=== PATIENT | male | born 1985 | race Caucasian/White ===

== ENCOUNTER 2023-10-01 22:15 | Emergency (ER) | payer OTHER, SELFPAY ==
--- NOTE | 2023-10-01 22:54 | ED.GENMED ---
History of Present Illness
General
Chief Complaint: Crisis Evaluation
Source: patient and police
Time Seen by Provider: 10/01/23 22:37
Nursing documentation reviewed up to this point in time: agreed with
History of Present Illness
History of Present Illness:
38-year-old male brought in by [facility] [employer]. Patient was in custody during an arrest for driving under the influence. While he was in Officer Samir custody, patient stated that 'wanted to kill himself '. He stated that 'he
had nothing left to live for and had nowhere to go'. He told the officer that 'he would go to a local campground to kill himself if he was released. He further stated that he would kill himself with one of the knives he had in his truck '.
Patient then proceeded to threaten the officer stating that he was 'going to find us and kill us to soon as he was released '. He told Officer Leonidas that 'he lives in the area and knows the area well and that will make it easy for him to come kill
me the next time I work'.
History is limited because patient is severely agitated. He appears intoxicated. Patient was handcuffed. He was verbally threatening staff stating that he was 'going to kill us '. We did sedate him with Haldol and Ativan to protect him from
himself. Patient being monitored on one-to-one.
Past History
Past History
ED Past Medical History: None
ED Past Surgical History: Orthopedic
Patient has exhibited threatening behavior?: Yes
Date of threatening behavior? (updated with each occurrence): 10/01/23
Social History
Tobacco: Smoker
Alcohol: Occasional
Drug: Marijuana
Personal: Single
Living: with family
Employment: Employed
Review of Systems
Review of Systems
Allergies reviewed?: Yes
All Other Systems: ROS reviewed and negative except as documented in HPI and ROS
Psychiatric: Reports anxiety and suicidal
Phy Exam
General Physical Exam
General Presentation: severe distress
General age: appears older than age
General Skin: warm, dry and flushed
General Habitus: normal
General Mental: angry, anxious, appears intoxicated and verbally abusive
General Hydration: appears well hydrated
Musculoskeletal Exam
Musculoskeletal Exam: full ROM
Skin Exam
Skin Exam: normal color and warm/dry
Psychiatric Exam
Psychiatric Exam: agitated, anxious and suicidal
Course
Orders/Labs/Results
Orders:
Orders
10/01/23 22:20
Crisis Consult Urgent
Reason for Consult: SI
1:1 Observation - Suicide/ Violent Behavior As Directed
10/01/23 22:24
Urine Drug Abuse Screen Urgent
Date Specimen was Collected: 10/01/23
Time Specimen was Collected: 22:24
10/01/23 22:41
Haloperidol Lactate [Haldol] 10 mg .ROUTE .STK-MED ONE
Lorazepam [Ativan] 2 mg .ROUTE .STK-MED ONE
10/01/23 22:53
Haloperidol Lactate [Haldol] 10 mg IM NOW STA
Lorazepam [Ativan] 2 mg IM NOW STA
10/01/23 22:59
Alcohol Urgent
Basic Metabolic Panel Urgent
Complete Blood Count/With Diff Urgent
10/01/23 23:11
PSYCHIATRY CONSULT Urgent
Consulting Provider: Ranulfo Art
Was physician already notified: No
Reason for consult: Suicidal and homicidal ideation, alcohol intoxication
10/01/23 23:12
Consult Notification Routine
Specialty to Notify: Psychiatry
Date consulting provider notified: 10/01/23
Time consulting provider notified: 23:43
Notified:: Service
Abnormal Lab Results
10/01/23
22:59
MCHC 37.5 H g/dL
(33.0-37.0)
Chloride 110 H mmol/L
(98-107)
BUN 7 L mg/dl
(9-20)
Calcium 8.3 L mg/dl
(8.4-10.2)
10/01/23 22:59
10/01/23 22:59
Vital Signs
Initial and Last Documented VS:
Initial Vital Signs
Temp Pulse Resp BP Pulse Ox
98.0 F 76 16 128/84 98
10/01/23 22:55 10/01/23 22:55 10/01/23 22:55 10/01/23 22:55 10/01/23 22:55
Last Documented Vital Signs
Temp Pulse Resp BP Pulse Ox
98.0 F 71 16 128/84 91
10/01/23 22:55 10/02/23 00:31 10/01/23 22:55 10/01/23 22:55 10/02/23 00:31
*Critical Care Note
Total Time (30-74mins, 75-104mins- exclusive of procedures): Not Applicable
ED Attending Note
-
Portions of this chart may have been created with voice recognition software.� Occasional wrong word or��sound alike� substitutions may have occurred due to the inherent limitations of voice recognition software.
Discharge Plan
Departure
Date of Disposition: 10/01/23
Time of Disposition: 23:10
Patient Status:: 302
Consults for patient: Psychiatry
Prescriptions:
No Action
glucosamine sulfate 2KCl 1,000 MG tablet
1 tab PO DAILY
clindamycin HCl 300 MG capsule
300 mg PO TID Qty: 30 0RF
Interventions
Interventions:
*Risk Screen - Suicide Last Done: 10/01/23 22:16
*General Assessment Last Done: 10/01/23 22:16
*Neglect/Abuse Screening Last Done: 10/01/23 22:16
ED- Fall Risk Assessment Last Done: 10/01/23 23:59
*ED COVID-19 Vaccine History Last Done: 10/01/23 22:16
ED-Psychological Assessment Last Done: 10/01/23 23:08
Discharge Date and Time
Print Language: SPANISH
[2023-10-01 22:55] VITALS: BP 128/84
[2023-10-01] MEDS: HALDOL 10 MG IM (22:55)
[2023-10-01] MEDS: ATIVAN 2 MG IM (22:55)
--- NOTE | 2023-10-01 22:55 | EDRN ---
Patient brought in with police and in handcuffs, patient initially aggressive and yelling and punching wall with cuffs on, Dr. Baum along with security and nursing staff at bedside with patient, patient medicated for safety of patient and
staff, patient is understanding as to why getting medications, patient is able to calm down some and allow nursing staff to give meds safely. Patient changed into blue paper scrubs and provided with turkey sandwich and water. Patient given
blankets and allowed staff to draw blood work, security aware we need urine, crisis informed patient he was a 302, patient cooperative with this information, covered with blanket and lights turned down.
[2023-10-01 23:16] LABS: % Basophils 0.9 % (0-2); % Eosinophils 0.8 % (0-6); % Immature Granulocytes 0.3 % (0-0.5); % Lymphocytes 37.8 % (20.5-51.1); % Monocytes 6.5 % (1.7-9.3); % Neutrophils 53.7 % (42.2-75.2); Absolute Basophils 0.1 10^3/uL (0-0.2); Absolute Eosinophils 0.1 10^3/uL (0-0.7); Absolute Monocytes 0.5 10^3/uL (0.1-0.6); Absolute Neutrophils 4.3 10^3/uL (1.4-6.5); Hematocrit 42.9 % (39.0-52.0); Hemoglobin 16.1 g/dL (13.0-18.0); Mean Corp Hgb Conc. 37.5 g/dL (33.0-37.0); Mean Corpuscular Hgb 30.9 pg (27.0-31.0); Mean Corpuscular Volume 82.3 fL (80.0-94.0); Mean Platelet Volume 9.9 fL (7.4-10.4); Nucleated Red Blood Cells % 0 % (-); Platelet Count 284 10^3/uL (130-400); Red Blood Cell Count 5.21 10^6/uL (4.70-6.10); Red Cell Dist. Width 12.5 % (11.5-14.5)
[2023-10-01 23:22] LABS: Blood Urea Nitrogen 7 mg/dl (9-20); Calcium 8.3 mg/dl (8.4-10.2); Carbon Dioxide 23 mmol/L (22-30); Chloride 110 mmol/L (98-107); Glucose 92 mg/dl (70-99); Potassium 4.1 mmol/L (3.5-5.1); Sodium 143 mmol/L (135-145); eGFR > 60.00
[2023-10-01 23:32] LABS: Alcohol 306 mg/dl
--- NOTE | 2023-10-02 00:31 | EDRN ---
Patient sleeping soundly with security at bedside, VSS, patient remains in a safe environment.
--- NOTE | 2023-10-02 02:56 | DOWNTIME ---
There was a [employer] Downtime on 10/02/2023 from 0100 to 10/02/2023 at 0255. Downtime documentation of patient's care, including medication administrations, has been reconciled in the electronic record per guidelines. Refer to the
patient's paper chart under the miscellaneous tab to see printed paper medication records and downtime forms.
[2023-10-02 08:41] VITALS: BP 124/59
[2023-10-02] MEDS: TYLENOL 1000 MG PO (09:29)
[2023-10-02] MEDS: NICODERM TRANSDERMAL 21 MG TRANSDERM (10:47)
== END 2023-10-02 13:43 ==
LOC: EMR 22:15
PROVIDERS: CONSULT PHYSICIAN Psychiatry & Neurology Psychiatry; EMERGENCY PHYSICIAN Student in an Organized Health Care Education/Training Program
DX: R45.851 Suicidal ideations (principal); F10.129 Alcohol abuse with intoxication, unspecified; R45.850 Homicidal ideations; R45.1 Restlessness and agitation; F41.9 Anxiety disorder, unspecified; F17.200 Nicotine dependence, unspecified, uncomplicated
CPT/HCPCS: 99285; 96372 ×2; 80048; 82077; 85025